=== PATIENT | male | born 1985 | race Caucasian/White ===

== ENCOUNTER 2018-09-30 12:04 | Observation (INO) | payer OTHER ==
[2018-09-30] MEDS ORDERED: LR 1,000 ML IV ONE (15:04)
--- NOTE | 2018-09-30 15:27 | PDGENHP ---
History & Physical Chief Complaint: AUDREY History of Present Illness: AUDREY, Tonsil hypertrophy Pertinent Past, Social, Family History: NC Relevant Physical Exam: NAD. Tonsil hypertrophy. RR. CTA Cardiorespiratory Assessment: Appropriate for procedure: Lingual and palatine tonsilectomy
[2018-09-30] MEDS ORDERED: MIDAZOLAM 2 MG/2 ML VIAL IVP ONE (15:29)
--- NOTE | 2018-09-30 15:29 | PDANEPAE ---
ANE History of Present Illness tonsillectomy adenoidectomy ANE Past Medical History - Cardiovascular History Hx Hypertension: No Hx Arrhythmias: No Hx Chest Pain: No Hx Coronary Artery / Peripheral Vascular Disease: No Hx CHF / Valvular Disease: No Hx Palpitations: No - Pulmonary History Hx COPD: No Hx Asthma/Reactive Airway Disease: No Hx Recent Upper Respiratory Infection: No Hx Oxygen in Use at Home: No Hx Sleep Apnea: No Sleep Apnea Screening Result - Last Documented: Negative - Neurologic History Hx Cerebrovascular Accident: No Hx Seizures: No Hx Dementia: No - Endocrine History Hx Diabetes: No - Renal History Hx Renal Disorders: No - Liver History Hx Hepatic Disorders: No - Neurological & Psychiatric Hx Hx Neurological and Psychiatric Disorders: No - Cancer History Hx Cancer: No - Congenital Disorder History Hx Congenital Disorders: No - GI History Hx Gastrointestinal Disorders: No - Other Health History Other Health History: ECZEMA - Chronic Pain History Chronic Pain: No - Surgical History Prior Surgeries: HERNIA CHILDHOOD ANE Review of Systems Review of systems is: negative Review of Systems: - Exercise capacity METS (RN): 4 METS ANE Patient History - Allergies Allergies/Adverse Reactions: No Known Allergies Allergy (Verified 09/28/18 13:35) - Home Medications Home medications: home medication list seen and reviewed Home Medications: Sertraline HCl [Zoloft 100mg (*)] 150 mg PO DAILY 09/28/18 [Last Taken 09/30/18] - NPO status NPO Since - Liquids (Date): 09/30/18 NPO Since - Liquids (Time): 08:00 NPO Since - Solids (Date): 09/30/18 NPO Since - Solids (Time): 08:00 (light meal) - Anes Hx Anes Hx: no prior problems - Smoking Hx Smoking Status: Never smoked - Family Anes Hx Family Anes Hx: none Family Hx Anesthesia Complications: NEG ANE Labs/Vital Signs - Vital Signs Vital Signs: reviewed preoperatively; see RN documention for details Blood Pressure: 138/98 Heart Rate: 85 Respiratory Rate: 14 O2 Sat (%): 95 Height: 187.96 cm Weight: 88.451 kg ANE Physical Exam - Airway Neck exam: FROM Mallampati Score: Class 2 Mouth exam: normal dental/mouth exam - Pulmonary Pulmonary: no respiratory distress - Cardiovascular Cardiovascular: regular rate and rhythym - ASA Status ASA Status: I ANE Anesthesia Plan Anesthesia Plan: general endotracheal anesthesia
[2018-09-30] MEDS ORDERED: BUPIVACAINE/EPI 0.25% 30 ML SDV ONE (15:41)
[2018-09-30] MEDS ORDERED: ROCURONIUM 50 MG/5 ML VIAL ONE (15:54)
[2018-09-30] MEDS ORDERED: ONDANSETRON 4 MG/2 ML VIAL ONE (15:54)
[2018-09-30] MEDS ORDERED: LIDOCAINE 2% 100 MG/5 ML SYR ONE (15:54)
[2018-09-30] MEDS ORDERED: DEXAMETHASONE 4 MG/ML VIAL ONE ×3 (15:54→16:55)
[2018-09-30] MEDS ORDERED: fentaNYL 250 MCG/5 ML INJ ONE (15:55)
[2018-09-30] MEDS ORDERED: PROPOFOL 200 MG/20 ML VIAL ONE (15:55)
[2018-09-30] MEDS ORDERED: oxyCODONE IR 5 MG TAB PO PRN (16:53)
[2018-09-30] MEDS ORDERED: HYDROCODONE/APAP 5/325 TAB PO PRN (16:53)
[2018-09-30] MEDS ORDERED: DEXAMETHASONE 4 MG/ML VIAL IVP PRN (16:53)
[2018-09-30] MEDS ORDERED: PROMETHAZINE HCL 25 MG/ML INJ IVP PRN (16:53)
[2018-09-30] MEDS ORDERED: ONDANSETRON 4 MG/2 ML VIAL IVP PRN ×2 (16:53→17:22)
[2018-09-30] MEDS ORDERED: NALOXONE HCL 0.4 MG/ML INJ IVP PRN (16:53)
[2018-09-30] MEDS ORDERED: HYDROmorphONE/DILAUDID 2 MG/ML INJ IVP PRN (16:53)
[2018-09-30] MEDS ORDERED: ACETAMINOPHEN 500 MG TAB PO PRN (16:53)
[2018-09-30] MEDS ORDERED: MEPERIDINE 25 MG/0.5 ML AMP IVP PRN (16:53)
[2018-09-30] MEDS ORDERED: LABETALOL HCL 20 MG/4 ML INJ IVP PRN (16:53)
--- NOTE | 2018-09-30 17:22 | POSTOPPROG ---
Post Op Note Date of Operation: 09/30/18 Surgeon: Harpreet Louis Anesthesia: GET(General Endotracheal) Pre-op Diagnosis: Lingual and palatine tonsil hypertrophy Post-op Diagnosis: Lingual and palatine tonsil hypertrophy Indication: Lingual and palatine tonsil hypertrophy Procedure: Lingual and palatine tonsillectomy Findings: Lingual and palatine tonsil hypertrophy Inf/Abcess present in the surg proc area at time of surgery?: No Depth: Deep Incisional (Fascial) EBL: Minimal Specimen(s): tonsils
[2018-09-30] MEDS ORDERED: fentaNYL 100 MCG/2 ML INJ ONE (17:27)
[2018-09-30] MEDS: fentaNYL 100 MCG/2 ML INJ IVP PRN ×4 (17:30→18:44)
[2018-09-30] MEDS ORDERED: D5W 1/2 NS 1,000 ML IV SCH (17:30)
--- NOTE | 2018-09-30 17:32 | POSTANESTH ---
Post Anesthetic Evaluation Cardiovascular Status: Normal, Stable, Similar to Pre-Op Cond Respiratory Status: Normal, Stable, Similar to Pre-op Cond. Level of Consciousness/Mental Status: Can Participate in Eval, Mildly Sleepy, Arousable Pain Control: Adequate, Prn Tx Ordered Nausea/Vomiting Control: Adequate, Prn Tx Ordered Complications Possibly Related to Anesthesia: None Noted
[2018-09-30] MEDS ORDERED: oxyCODONE IR 5 MG TAB ONE (18:47)
[2018-10-01] MEDS: HYDROCOD/APAP 7.5/325 IN 15ML UDCUP PO PRN ×3 (00:53→10:30)
[2018-10-01] MEDS ORDERED: DEXAMETHASONE 4 MG/ML VIAL IVP ONE (10:31)
--- NOTE | 2018-10-01 10:34 | SOAPPROG ---
SOAP Progress Note Assessment/Plan: Assessment: s/p 10/01/18 lingual and palatine tonsillectomy Plan: Home SEE PRINTED DISCHARGE INSTRUCTIONS 10/01/18 10:32 Objective: Vital Signs Temp Pulse Resp BP Pulse Ox 37.3 C 88 14 129/67 H 95 10/01/18 08:00 10/01/18 08:00 10/01/18 08:00 10/01/18 08:00 10/01/18 08:00 09/30/18 10/01/18 10/02/18 05:59 05:59 05:59 Intake Total 2000 Output Total 290 Balance 1710 - Pending Discharge Pending Discharge Within 24 Hours: Yes Pending Discharge Date: 10/02/18 Pending Discharge Time: 11:00 Physical Exam - Physical Exam General Appearance: WD/WN, alert, no apparent distress EENT: PERRL/EOMI, No pharynx normal (Tonsillar fossae clear. no blood), No pharyngeal erythema, No tonsillar exudate Skin: normal color, warm/dry Neuro/Psych: alert, normal mood/affect, oriented x 3 ICD10 Worksheet Patient Problems: Problems Problem Status Onset Tonsillar hypertrophy Acute - ICD10 Problem Qualifiers (1) Tonsillar hypertrophy
--- NOTE | 2018-10-01 10:52 | ASMTLACE ---
HENRIE Length of stay for Answers: Less than 1 day current admission Acuity / Level of Answers: No Care: Did the patient have an inpatient admission? # of Emergency department Answers: 0 visits in the last 6 months Date Signed: 10/01/2018 10:51 AM Electronically Signed By:Aranza Mayfield
--- NOTE | 2018-10-01 10:56 | ASDISCHSUM ---
Discharge Information Plan Status:Home with No Needs Medically Cleared to Leave:09/30/2018 Discharge Date:09/30/2018 CM D/C Disposition:Home, Routine, Self-Care ADT D/C Disposition:Home, Routine, Self-Care Projected Discharge Date:09/30/2018 Transportation at D/C:Family Discharge Delay Reason: Follow-Up Date:09/30/2018 Discharge Slot: Final Diagnosis:Tonsillar Hypertrophy Placement Information Patient Contact Information Contact Name:HANNAH Relationship:Mother Address: Home Phone: City: [place] Phone: [facility]/[employer] Code: Email: Financial Information Financial Class:MPO and PPO Plans Primary Plan Desc:[employer] Primary Plan Number:[id number] Secondary Plan Desc: Secondary Plan Number: Assessment Information LACE LACE Length of stay for Answers: Less than 1 day current admission Acuity / Level of Answers: No Care: Did the patient have an inpatient admission? # of Emergency department Answers: 0 visits in the last 6 months Date Signed: 10/01/2018 10:51 AM Electronically Signed By:Aranza Mayfield Case Management Discharge Plan Note Case Management Discharge Discharge Order Complete? Answers: Yes Patient to Obtain Answers: via Family Medications Transportation Arranged Answers: Family/Friends Family Notified Answers: Yes Notes: mother in the room Discharge Comments Notes: Pt admitted for tonsillectomy and mother is in town from [place] to help care for him. Both feel comfortable with pt discharging independently. No CM needs noted at this time. Date Signed: 10/01/2018 10:55 AM Electronically Signed By:Aranza Mayfield Intervention Information
[2018-10-01 11:14] VITALS: BP 131/77
--- NOTE | 2018-10-01 20:55 | GOP ---
DATE OF OPERATION: 09/30/2018 SURGEON: Harpreet Louis MD ANESTHESIA: General. PREOPERATIVE DIAGNOSIS: Roy and lingual tonsillar hypertrophy. POSTOPERATIVE DIAGNOSIS: Roy and lingual tonsillar hypertrophy. PROCEDURE PERFORMED: Lingual tonsillectomy, palatine tonsillectomy. FINDINGS: Bilateral palatine and lingual tonsillar hypertrophy. SPECIMENS: Roy tonsils. ESTIMATED BLOOD LOSS: Minimal. INDICATIONS: The patient was seen in outpatient clinic and found to have a history of both palatine and lingual tonsillar hypertrophy. This was thought to be contributory toward a hyperactive gag refl ex. Given his history and findings, he was determined to be an appropriate candidate for the above-s tated procedures. The risks, benefits, and alternatives to the procedures were explained at length t o the patient, who stated he understood and agreed. DESCRIPTION OF PROCEDURE: The patient was brought to the operating room by Anesthesiology and placed on the operating table. Once appropriate level of anesthesia was achieved, a shoulder roll was plac ed and the table was turned 90 degrees. The patient was then prepped and draped in the usual fashion . A Carmine mouth gag was placed atraumatically in the oral cavity and suspended on the Mesa stand. T he soft palate was palpated for submucous cleft. None was found. The right tonsil was excised first using Coblation cautery technique. There was minimal bleeding with this, and hemostasis was achieve d using Coblation cautery alone. The left tonsil was then excised using Coblation cautery technique. There was minimal bleeding with this, and hemostasis was achieved using Coblation cautery alone. T he bilateral tonsillar fossas were injected with 0.25% bupivacaine with epinephrine at the mid and tinajero perior tonsillar poles. The Carmine mouth gag was then removed. A McIvor mouth gag with a short tongu e blade was then placed in the oral cavity. Prior to it being deployed, a silk suture was placed thr ough the anterior tongue and used to retract the tongue. The mouth gag was then everted posteriorly into the oral cavity in order to allow the tongue blade to reach the posterior tongue. This was then deployed and suspended on a Mesa stand. A 70-degree video endoscope was then used to visualize the tongue base. With good visualization, Coblation was used to ablate a significant amount of lingual t onsil tissue. Ablation started within the vallecula and was brought anteriorly to the circumvallate and through the posterior aspect of the circumvallate papillae. There was significant soft tissue re duction with this and minimal bleeding. Hemostasis was achieved using Coblation cautery alone. Foll owing the lingual tonsillectomy, the stomach was suctioned with an OG tube. The tongue bed was jacinto ualized for bleeding. None was found. The mouth gag was removed. The Carmine mouth gag was redeploye d within the mouth to inspect the tonsillar fossa. No bleeding was found. The patient tolerated the se procedures well and was extubated in the operating room prior to being transferred in good conditi on to the postanesthesia care unit. COMPLICATIONS: None. /[id number]/MODL
--- NOTE | 2018-10-01 23:06 | GDS ---
CHIEF COMPLAINT: Status post palatine and lingual tonsillectomy. HOSPITAL COURSE: The patient was admitted to the floor status post palatine and lingual tonsillectom y. His surgery and postoperative course were unremarkable. He was admitted for observation of airwa y and pain control. His hospital course was unremarkable and he had reasonable pain control, given t he nature of his surgery. On day of discharge, he was tolerating a liquid diet. He was able to be a mbulatory and resumed bathroom use. Given this, he was determined to be appropriate for discharge. He was discharged with [facility] for pain control. He was given instructions to follow up in 3 weeks, or sooner should he have any problems. /[id number]/MODL
== END 2018-10-01 11:40 | disposition home or self-care (01) ==
LOC: F3E 14:22
PROVIDERS: ADMIT Otolaryngology; ATTEND Otolaryngology
PROC: 0CTPXZZ Resection of Tonsils, External Approach (ICD-10-PCS; principal; 2018-09-30 16:30)
DX: J35.1 Hypertrophy of tonsils (principal); G47.33 Obstructive sleep apnea (adult) (pediatric)
CPT/HCPCS: 42826; G0378; J1100; J2001; J2250; J2405; J2704; J3010